=== PATIENT | female | born 1960 | race Caucasian/White ===

== ENCOUNTER 2019-09-09 22:19 | Emergency (ER) | payer BC, OTHER ==
[2019-09-09] MEDS ORDERED: MORPHINE 4 MG/ML SYR ONE (22:59)
[2019-09-09] MEDS ORDERED: ONDANSETRON 4 MG/2 ML VIAL ONE (23:00)
[2019-09-09] MEDS ORDERED: FENTANYL CITR 100 MCG/2 ML ONE (23:20)
[2019-09-09] MEDS ORDERED: NA CHLORIDE 0.9% 1,000 ML ONE (23:29)
--- NOTE | 2019-09-10 00:16 | EDPHYS ---
Physician Documentation [facility] Name: Serene Walker Age: 59 yrs Sex: Female : 1960 Arrival Date: 09/09/2019 Time: 22:21 Bed 24 Private MD: ED Physician Byron Do HPI: 09/08 22:40 This 59 yrs old Female presents to ER via Wheelchair with complaints of Fall jmm Injury, Ankle Injury. 22:40 Details of fall: The patient fell from an upright position, while walking. Onset: The jmm symptoms/episode began/occurred acutely, just prior to arrival. Associated injuries: The patient sustained ankle. This is a 59 year old female with a history of htn that presents to the ED with complaints of left ankle pain which occurred acutely just prior to arrival. Patient states she tripped in a pothole in her yard. Patient denies other injury. . Historical: - Allergies: 22:30 No Known Allergies; jb4 - Home Meds: 22:30 thyroid med [Active]; B/p med [Active]; jb4 - PMHx: 22:30 Hypertension; Hypothyroidism; jb4 - Immunization history:: Adult Immunizations up to date. - Social history:: Smoking status: Patient denies any tobacco usage or history of. Patient uses alcohol, occasionally. Patient/guardian denies using street drugs. ROS: 22:40 Constitutional: Negative for fever, chills, and weight loss, Cardiovascular: Negative jmm for chest pain, palpitations, and edema, Respiratory: Negative for shortness of breath, cough, wheezing, and pleuritic chest pain. 22:40 All other systems are negative. Exam: 22:40 Constitutional: This is a well developed, well nourished patient who is awake, alert, jmm and in no acute distress. Head/Face: atraumatic. Eyes: EOMI, no conjunctival erythema appreciated ENT: Moist Mucus Membranes Neck: Trachea midline, Supple Chest/axilla: Normal chest wall appearance and motion. Cardiovascular: Regular rate and rhythm. No edema appreciated Respiratory: Normal respirations, no respiratory distress appreciated Abdomen/GI: Non distended, soft Back: Normal ROM Skin: General appearance color normal 22:40 Musculoskeletal/extremity: swelling noted to the left ankle, compartments are soft, full dorsalis pulse, anterior swelling is appreciated, NVI. 22:40 Skin: Appearance: Color: normal in color. 22:40 Neuro: Orientation: is normal, Mentation: is normal, Memory: is normal. 22:40 Psych: Behavior/mood is pleasant, cooperative. Vital Signs: 22:30 BP 136 / 78; Pulse 85; Resp 18; Temp 98.0(O); Pulse Ox 100% on R/A; Weight 102.06 kg jb4 (R); Height 5 ft. 7 in. (170.18 cm) (R); Pain 10/10; 23:16 BP 77 / 53 LA Supine; Pulse 53; Resp 16; Pulse Ox 97% on R/A; jb4 23:19 BP 79 / 41 RA Supine; Pulse 67; Resp 18; Pulse Ox 96% on R/A; jb4 23:25 BP 85 / 51 LA; Pulse 65; Resp 13; Pulse Ox 95% on R/A; jb4 23:40 BP 100 / 59; Pulse 74; Resp 16; Pulse Ox 96% on R/A; jb4 09/09 00:24 BP 84 / 61 LA Standing; Pulse 82; Resp 16; Pulse Ox 100% on R/A; jb4 00:31 BP 115 / 62 LA Sitting; Pulse 82; Resp 18; Pulse Ox 96% on R/A; jb4 00:45 BP 99 / 64 LA Sitting; Pulse 81; Resp 16; Pulse Ox 99% on R/A; jb4 01:00 BP 102 / 65; Pulse 82; Resp 16; Pulse Ox 100% on R/A; jb4 09/08 22:30 Body Mass Index 35.24 (102.06 kg, 170.18 cm) jb Procedures: 09/08 22:40 Splinting: Splint applied to left leg using posterior stirrup. applied by tech. mishel Examined by me, post splint application: neurovascular intact, 2+ distal pulses palpable, brisk capillary refill noted, Patient tolerated well. MDM: 22:40 Patient medically screened. mishel 09/09 00:14 Data reviewed: vital signs, nurses notes. Counseling: I had a detailed discussion with mishel the patient and/or guardian regarding: the historical points, exam findings, and any diagnostic results supporting the discharge/admit diagnosis, radiology results, the need for outpatient follow up, to return to the emergency department if symptoms worsen or persist or if there are any questions or concerns that arise at home. 00:14 ED course: Patient is advised of the need to follow up with ortho for further [facility] evaluation. Patient is given compartment syndrome return precautions. Patient understood and agrees with the plan of care. . 09/08 22:40 Order name: Ankle Left 3 View XRAY [facility] 09/08 22:40 Order name: Saline Lock; Complete Time: 22:50 [facility] 09/08 23:10 Order name: Crutches; Complete Time: 23:57 [facility] 09/08 23:12 Order name: Splint - Long Leg: Posterior w/ Stirrup; Complete Time: 23:45 [facility] Administered Medications: 09/08 23:00 Drug: Zofran (Ondansetron) 4 mg Route: IVP; Site: right antecubital; [facility] 23:30 Follow up: Response: No adverse reaction [facility] 23:05 Drug: morphine 4 mg {Note: Rass score 0.} Route: IVP; Site: right antecubital; [facility] 23:20 Follow up: Response: Adverse reaction, Physician notified; Pain is decreased [facility] 23:25 Drug: NS 0.9% 1000 ml Route: IV; Rate: 1 bolus; Site: right antecubital; [facility] 09/09 01:00 Follow up: Response: No adverse reaction; Blood pressure is elevated; IV Status: jb4 Completed infusion; IV Intake: 1000ml 09/08 23:32 Not Given (Hemodynamic Parameters): fentaNYL (PF) 50 mcg IVP once; RASS on ADMIN: jb4 Combtv4, Very Agttd3, Agttd2, Rstlss1, AlertClm0, Drwsy-1, Lt Sdtn-2, Mod Sdtn-3, Dp Sdtn-4, UnArsble-5 09/09 01:25 Drug: Motrin 800 mg Route: PO; 4 01:42 Follow up: Response: Medication administered at discharge. 4 Disposition: 06:29 Co-signature as Attending Physician, Byron Do MD I agree with the assessment and 4 plan of care. Disposition: 09/10/19 00:15 Discharged to Home. Impression: Fracture of lower leg, including ankle. - Condition is Stable. - Discharge Instructions: Ankle Fracture. - Prescriptions for Tylenol- Codeine #3 300-30 mg Oral Tablet - take 1 tablet by ORAL route every 6 hours As needed; 20 tablet. - Medication Reconciliation Form, Thank You Letter, Antibiotic Education, Prescription Opioid Use form. - Follow up: Shawn Shannon MD; When: 2 - 3 days; Reason: Recheck today's complaints, Continuance of care, Re-evaluation by your physician. Follow up: Italo Coleman MD; When: 2 - 3 days; Reason: Recheck today's complaints, Continuance of care, Re-evaluation by your physician. Signatures: Dispatcher [employer] EDMS Pepe White PA PA Brad Reveles, RN RN jb4 Byron Do MD MD tw4 Corrections: (The following items were deleted from the chart) 09/08 23:11 23:09 Splint - Ankle: Orthoglass: Stirrup ordered. [facility] 09/09 01:31 00:15 09/10/2019 00:15 Discharged to Home. Impression: Fracture of lower leg, including jb4 ankle. Condition is Stable. Forms are Medication Reconciliation Form, Thank You Letter, Antibiotic Education, Prescription Opioid Use. Follow up: Shawn Shannon; When: 2 - 3 days; Reason: Recheck today's complaints, Continuance of care, Re-evaluation by your physician. Follow up: Dr. Italo Coleman; When: 2 - 3 days; Reason: Recheck today's complaints, Continuance of care, Re-evaluation by your physician. [facility]
--- NOTE | 2019-09-10 00:16 | ER ---
Nurse's Notes [facility] Name: Serene Walker Age: 59 yrs Sex: Female : 1960 Arrival Date: 09/09/2019 Time: 22:21 Bed 24 Private MD: Diagnosis: Fracture of lower leg, including ankle Presentation: 09/08 22:30 Chief complaint: Patient states: I tripped and fell in my back yard about an hour ago jb4 and now I feel it crunching every time I try to move it. 22:30 Coronavirus screen: Proceed with normal triage. Ebola Screen: No symptoms or risks jb4 identified at this time. Initial Sepsis Screen: Does the patient meet any 2 criteria? No. Patient's initial sepsis screen is negative. Does the patient have a suspected source of infection? No. Patient's initial sepsis screen is negative. Risk Assessment: Do you want to hurt yourself or someone else? Patient reports no desire to harm self or others. Onset of symptoms was September 09, 2019. Mechanism of Injury: Fall from standing position. Transition of care: patient was not received from another setting of care. 22:30 Method Of Arrival: Wheelchair jb4 22:30 Acuity: DAVID 3 jb4 Historical: - Allergies: 22:30 No Known Allergies; jb4 - Home Meds: 22:30 thyroid med [Active]; B/p med [Active]; jb4 - PMHx: 22:30 Hypertension; Hypothyroidism; jb4 - Immunization history:: Adult Immunizations up to date. - Social history:: Smoking status: Patient denies any tobacco usage or history of. Patient uses alcohol, occasionally. Patient/guardian denies using street drugs. Screenin:30 Abuse screen: Denies threats or abuse. Nutritional screening: No deficits noted. jb4 Tuberculosis screening: No symptoms or risk factors identified. Fall Risk Fall in past 12 months (25 points). Gait- Impaired (20 pts.). Total Portillo Fall Scale indicates High Risk Score (45 or more points). Fall prevention measures have been instituted. Side Rails Up X 2 Placed Close to Nursing Station Frequent Obs/Assessments Occuring As available patient and family educated on Fall Prevention Program and Strategies. Assessment: 22:30 General: Appears in no apparent distress. uncomfortable, Behavior is calm, cooperative, jb4 appropriate for age. Pain: Complains of pain in Left ankle Pain radiates to left calf Pain currently is 10 out of 10 on a pain scale. Pain began 1 hour ago. Neuro: Level of Consciousness is awake, alert, obeys commands, Oriented to person, place, time, situation. Cardiovascular: Patient's skin is warm and dry. Pulses are 3+ in right dorsalis pedis artery and left dorsalis pedis artery. Respiratory: Airway is patent Respiratory effort is even, unlabored, Respiratory pattern is regular, symmetrical. GI: No signs and/or symptoms were reported involving the gastrointestinal system. : No signs and/or symptoms were reported regarding the genitourinary system. EENT: No signs and/or symptoms were reported regarding the EENT system. Derm: Skin is intact, Skin is pink, warm \\T\\ dry. Musculoskeletal: Circulation, motion, and sensation intact. Capillary refill < 3 seconds, in left fingers. Bony deformity noted of left ankle. 23:20 Reassessment: PT is A\\T\\Ox4 reports dizziness after morphing administration. Respirations jb4 are even and unlabored with no s/s of distress noted. B/p reads 77/53 on the left arm and 71/49 on the right arm. Provider notified, see MAR for orders. 23:40 Reassessment: Patient appears in no apparent distress at this time. Patient and/or jb4 family updated on plan of care and expected duration. Pain level reassessed. Patient is alert, oriented x 3, equal unlabored respirations, skin warm/dry/pink. Splint checked by ER provider. Patient states feeling better. 09/09 00:24 Reassessment: Patient appears in no apparent distress at this time. Patient and/or jb4 family updated on plan of care and expected duration. Pain level reassessed. Patient is alert, oriented x 3, equal unlabored respirations, skin warm/dry/pink. D/c pending, patient being held for further monitoring due to dizziness and low b/p. Attempted to perform crutch training, patent states " I can't do it, I'm too dizzy." Provider notified. 01:25 Reassessment: Patient appears in no apparent distress at this time. Patient and/or jb4 family updated on plan of care and expected duration. Pain level reassessed. Patient is alert, oriented x 3, equal unlabored respirations, skin warm/dry/pink. Pt performed crutch training without dizziness or feeling light headed. Reports overall feeling better. Reports pain increased in her ankle and foot. Sensation remains intact, pt denies numbness or tingling in the left foot. Cap refill <3. Provider notified, see MAR for orders. Pt verbalized understanding of d/c and follow up instructions, denies questions or concerns. Assisted to vehicle via wheelchair. Vital Signs: 09/08 22:30 BP 136 / 78; Pulse 85; Resp 18; Temp 98.0(O); Pulse Ox 100% on R/A; Weight 102.06 kg jb4 (R); Height 5 ft. 7 in. (170.18 cm) (R); Pain 10/10; 23:16 BP 77 / 53 LA Supine; Pulse 53; Resp 16; Pulse Ox 97% on R/A; jb4 23:19 BP 79 / 41 RA Supine; Pulse 67; Resp 18; Pulse Ox 96% on R/A; jb4 23:25 BP 85 / 51 LA; Pulse 65; Resp 13; Pulse Ox 95% on R/A; jb4 23:40 BP 100 / 59; Pulse 74; Resp 16; Pulse Ox 96% on R/A; jb4 09/09 00:24 BP 84 / 61 LA Standing; Pulse 82; Resp 16; Pulse Ox 100% on R/A; jb4 00:31 BP 115 / 62 LA Sitting; Pulse 82; Resp 18; Pulse Ox 96% on R/A; jb4 00:45 BP 99 / 64 LA Sitting; Pulse 81; Resp 16; Pulse Ox 99% on R/A; jb4 01:00 BP 102 / 65; Pulse 82; Resp 16; Pulse Ox 100% on R/A; jb4 09/08 22:30 Body Mass Index 35.24 (102.06 kg, 170.18 cm) 4 ED Course: 09/08 22:21 Patient arrived in ED. cl3 22:24 Pepe White PA is PHCP. jmm 22:24 Byron Do MD is Attending Physician. jmm 22:30 Arm band placed on right wrist. jb4 22:30 Patient has correct armband on for positive identification. Bed in low position. Call jb4 light in reach. Side rails up X 1. Pulse ox on. NIBP on. 22:38 Brad Holbrook, MOUNIKA is Primary Nurse. jb4 22:41 Triage completed. jb4 22:49 Initial lab(s) drawn, by me, held in ED. Inserted saline lock: 20 gauge in right jp3 antecubital area, using aseptic technique. Blood collected. Patient maintains SpO2 saturation greater than 95% on room air. 22:52 Ice pack to injury. Verbal reassurance given. jp3 23:05 Ankle Left 3 View XRAY In Process Unspecified. EDMS 23:45 Av wrap to left knee and left ankle and left leg Orthoglass splint: Posterior long leg jp3 splint applied on left leg. stirrup splint applied on left leg. 09/09 00:15 Shawn Shannon MD is Referral Physician. [facility] 00:15 Italo Coleman MD is Referral Physician. [facility] 01:25 No provider procedures requiring assistance completed. IV discontinued, intact, jb4 bleeding controlled, No redness/swelling at site. Pressure dressing applied. Administered Medications: 09/08 23:00 Drug: Zofran (Ondansetron) 4 mg Route: IVP; Site: right antecubital; 4 23:30 Follow up: Response: No adverse reaction [facility] 23:05 Drug: morphine 4 mg {Note: Rass score 0.} Route: IVP; Site: right antecubital; [facility] 23:20 Follow up: Response: Adverse reaction, Physician notified; Pain is decreased [facility] 23:25 Drug: NS 0.9% 1000 ml Route: IV; Rate: 1 bolus; Site: right antecubital; jb4 09/09 01:00 Follow up: Response: No adverse reaction; Blood pressure is elevated; IV Status: jb4 Completed infusion; IV Intake: 1000ml 09/08 23:32 Not Given (Hemodynamic Parameters): fentaNYL (PF) 50 mcg IVP once; RASS on ADMIN: jb4 Combtv4, Very Agttd3, Agttd2, Rstlss1, AlertClm0, Drwsy-1, Lt Sdtn-2, Mod Sdtn-3, Dp Sdtn-4, UnArsble-5 09/09 01:25 Drug: Motrin 800 mg Route: PO; jb4 01:42 Follow up: Response: Medication administered at discharge. jb4 Intake: 01:00 IV: 1000ml; Total: 1000ml. jb4 Outcome: 00:15 Discharge ordered by . mishel 01:25 Discharged to home via wheelchair, with family. jb4 01:25 Condition: stable 01:25 Discharge instructions given to patient, Instructed on discharge instructions, follow up and referral plans. medication usage, crutch walking, Demonstrated understanding of instructions, follow-up care, medications, crutch walking, Prescriptions given X 1. 01:31 Patient left the ED. jb4 Signatures: Dispatcher [employer] EDMS Pepe White PA PA jmm Bryson, James, MOUNIKA RN jb4 Dale Nichole jp3 Devonte Berg3 Corrections: (The following items were deleted from the chart) 09/08 23:31 23:20 Reassessment: PT is A\\T\\Ox4 reports dizziness after morphing administration. jb4 Respirations are even and unlabored with no s/s of distress noted. B/p reads 77/55 on the left arm and 71/49 on the right arm. Provider notified, see [facility] for orders. jb4 23:54 23:40 Reassessment: Patient appears in no apparent distress at this time. Patient jb4 and/or family updated on plan of care and expected duration. Pain level reassessed. Patient is alert, oriented x 3, equal unlabored respirations, skin warm/dry/pink. Patient states feeling better. jb4 09/09 01:00 00:30 Reassessment: Patient appears in no apparent distress at this time. Patient jb4 and/or family updated on plan of care and expected duration. Pain level reassessed. Patient is alert, oriented x 3, equal unlabored respirations, skin warm/dry/pink. D/c pending, patient being held for further monitoring due to dizziness and low b/p jb4 31 01:25 Discharge instructions given to patient, Instructed on discharge instructions, jb4 follow up and referral plans. medication usage, Demonstrated understanding of instructions, follow-up care, medications, Prescriptions given X 1, jb4 01:33 01:25 Reassessment: Patient appears in no apparent distress at this time. Patient jb4 and/or family updated on plan of care and expected duration. Pain level reassessed. Patient is alert, oriented x 3, equal unlabored respirations, skin warm/dry/pink. Pt performed crutch training without dizziness or feeling light headed. Reports overall feeling better. Reports pain increased in her ankle and foot. Provider notified, see MAR for orders. Pt verbalized understanding of d/c and follow up instructions, denies questions or concerns. Assisted to vehicle via wheelchair. jb4
[2019-09-10] MEDS ORDERED: IBUPROFEN 400 MG TAB ONE (01:21)
[2019-09-10 01:37] VITALS: TEMP 98
[2019-09-10 01:47] VITALS: BP 102/65; O2SAT 100
--- NOTE | 2019-09-10 09:05 | RAD REPORT ---
EXAM DESCRIPTION: RAD - Ankle Left 3 View - 09/09/2019 11:05 pm CLINICAL HISTORY: PAIN, trip and fall, ankle pain COMPARISON: No comparisons FINDINGS: An oblique fracture is present through the distal fibula. This is superior to the tibiotal ar joint line. Approximately 20 degrees posterior angulation deformity is present of the fibula fract ure site with 6 mm medial displacement of the distal fracture fragment. Oblique fracture is present t hrough the epiphysis and metaphysis of the distal tibia. This involves the articular surface. There i s posterior dislocation of the dome of the talus which remains approximated to the fracture fragment. The posterior malleolus fracture fragment is angulated 20 degrees. No fracture of the talus or calcaneus. Patient has large plantar spur and small Achilles spur. Soft t issue swelling is present but mild. No foreign body. IMPRESSION: Distal left tibia and fibula fractures are present with medial displacement, posterior a ngulation of the distal fracture fragments as well as dislocation of the dome of the talus which jared ins approximated to the posterior malleolus fracture fragment.
== END 2019-09-10 01:31 | disposition home or self-care (01) ==
LOC: ER 22:19
PROC: 2W3RX1Z Immobilization of Left Lower Leg using Splint (ICD-10-PCS; principal; 2019-09-10)
DX: S82.892A Other fracture of left lower leg, initial encounter for closed fracture (principal); W01.0XXA Fall on same level from slipping, tripping and stumbling without subsequent striking against object, initial encounter; Y93.01 Activity, walking, marching and hiking; Y92.007 Garden or yard of unspecified non-institutional (private) residence as the place of occurrence of the external cause; I10 Essential (primary) hypertension; E03.9 Hypothyroidism, unspecified
CPT/HCPCS: 73610; 29515; J3010; J7030; J2405; 96361; 96374; 96375; 99285